=== PATIENT | male | born 1960 | race African-American/Black ===

== ENCOUNTER 2017-06-09 11:24 | Emergency (ER) | payer MEDICAID ==
[~2017-06-09] VITALS: Ht 182.9 cm; Wt 78.0 kg
[2017-06-09 11:28] VITALS: BP 134/69
== END 2017-06-09 13:49 | disposition home or self-care (01) ==
LOC: ED 13:43
DX: Z00.00 Encounter for general adult medical examination without abnormal findings (principal); R53.1 Weakness; I10 Essential (primary) hypertension; Z88.0 Allergy status to penicillin
CPT/HCPCS: 99283